=== PATIENT | female | born 1995 | race Two or more races ===

== ENCOUNTER 2021-06-07 01:11 | Emergency (ER) | payer MEDICAID, OTHER ==
[~2021-06-07] VITALS: Ht 165.1 cm; Wt 90.7 kg
[2021-06-07 03:42] LABS: Basophils # (auto) 0 10 ^3/uL (0-0.2); Basophils % (auto) 0.2 % (0.0-2.0); Eosinophils # (auto) 0.1 10 ^3/uL (0-0.8); Eosinophils % (auto) 0.9 % (0.0-7.0); Hemoglobin 14.4 g/dL (12.2-16.2); Lymphocytes # (auto) 2.3 10 ^3/uL (0.4-5.4); Lymphocytes % (auto) 24.7 % (10.0-50.0); Mean Corpuscular Hemoglobin 30.4 pg (28.0-32.0); Mean Corpuscular Hgb Conc. 33.4 g/dL (32.0-36.0); Mean Corpuscular Volume 91.2 fL (80.0-100.0); Monocytes # (auto) 0.8 10 ^3/uL (0-1.3); Monocytes % (auto) 8.5 % (0.0-12.0); Neutrophils % (auto) 65.7 % (37.0-80.0); Red Blood Cells 4.72 10^6/uL (4.0-5.20); Red Cell Distribution Width 12.7 % (11.8-14.3); White Blood Cell 9.1 10^3/uL (4.4-10.8)
[2021-06-07 04:04] VITALS: BP 117/84
[2021-06-07 05:57] LABS: Albumin 3.4 g/dL (3.4-5.0); BUN/Creatinine Ratio 9.9; Bilirubin, Total 0.5 mg/dL (0.2-1.0); Calcium 8.6 mg/dL (8.5-10.1); Potassium 4.4 mmol/L (3.5-5.1); Total Protein 6.9 g/dL (6.4-8.2)
== END 2021-06-07 06:51 | disposition home or self-care (01) ==
LOC: EDBD 01:11 → ER 01:15
DX: N39.0 Urinary tract infection, site not specified (principal); E66.9 Obesity, unspecified; Z68.33 Body mass index [BMI] 33.0-33.9, adult; Z88.0 Allergy status to penicillin
CPT/HCPCS: 36415; 80053; 83690; 85025